=== PATIENT | male | born 1995 | race Caucasian/White ===

== ENCOUNTER 2021-10-03 23:56 | Emergency (ER) | payer SELFPAY ==
[~2021-10-03 23:56] MED LIST: BACTRIM DS 8001 TA1 PO; BACTROBAN CREAM15 GM T; KEFLEX500 M1 PO; MOTRIN800 MG PO; NKHM; PHENERGAN12.5 MG RC; ZOFRAN4 MG PO; ZOLOFT50 MG PO
== END 2021-10-04 00:42 | disposition home or self-care (01) ==
LOC: ED 23:56
DX: S61.210A Laceration without foreign body of right index finger without damage to nail, initial encounter (principal); Z79.899 Other long term (current) drug therapy; Z98.890 Other specified postprocedural states; W26.8XXA Contact with other sharp object(s), not elsewhere classified, initial encounter; Y93.89 Activity, other specified; Y92.89 Other specified places as the place of occurrence of the external cause; Y99.8 Other external cause status

== ENCOUNTER 2022-04-13 00:41 | Emergency (ER) | payer SELFPAY ==
[~2022-04-13] VITALS: Ht 172.7 cm; Wt 72.6 kg
[2022-04-13] MEDS ORDERED: VIBRA-TAB100 MG PO (00:59)
== END 2022-04-13 01:23 | disposition home or self-care (01) ==
LOC: ED 00:41
DX: J01.10 Acute frontal sinusitis, unspecified (principal); Z98.890 Other specified postprocedural states